=== PATIENT | female | born 1955 | race Two or more races ===

== ENCOUNTER 2023-12-28 18:28 | Emergency (ER) | payer BC, OTHER ==
[~2023-12-28] VITALS: Ht 157.5 cm; Wt 90.3 kg
[2023-12-28 19:06] LABS: Urine Bacteria None Seen /hpf (None Seen)
[2023-12-28 19:12] LABS: Urine Blood 3+ /uL (Negative); Urine Clarity Turbid (Clear); Urine Color Colorless (Yellow); Urine Protein, UAD 1+ (Negative); Urine Urobilinogen Normal (Negative); Urine WBC 269 /hpf (0 - 5); Urine WBC Clumps PRESENT /hpf (None Seen)
[2023-12-28 19:32] LABS: Basophils # (auto) 0.1 10 ^3/uL (0-0.2); Basophils % (auto) 0.7 % (0.0-2.0); Eosinophils # (auto) 0.1 10 ^3/uL (0-0.8); Eosinophils % (auto) 0.7 % (0.0-7.0); Hematocrit 43.7 % (36.0-46.0); Hemoglobin 14.2 g/dL (12.2-16.2); Lymphocytes # (auto) 0.7 10 ^3/uL (0.4-5.4); Lymphocytes % (auto) 7.8 % (10.0-50.0); Mean Corpuscular Hemoglobin 29.6 pg (28.0-32.0); Mean Corpuscular Hgb Conc. 32.6 g/dL (32.0-36.0); Monocytes # (auto) 0.7 10 ^3/uL (0-1.3); Monocytes % (auto) 6.9 % (0.0-12.0); Neutrophils % (auto) 83.9 % (37.0-80.0); Red Blood Cells 4.81 10^6/uL (4.0-5.20); Red Cell Distribution Width 13.9 % (11.8-14.3); White Blood Cell 9.6 10^3/uL (4.4-10.8)
[2023-12-28 19:48] LABS: Alanine Aminotransferase 24 U/L (7-40); Albumin 4.7 g/dL (3.2-4.8); Alkaline Phosphatase 91 U/L (46-116); Anion Gap 8 (5-15); Aspartate Aminotransferase 29 U/L (13-40); BUN/Creatinine Ratio 11.7 (10.0-20.0); Blood Urea Nitrogen 12 mg/dL (9-23); Calcium 9.8 mg/dL (8.5-10.1); Carbon Dioxide 24 mmol/L (20-30); Chloride 107 mmol/L (98-107); Glucose 100 mg/dL (74-106); Potassium 3.9 mmol/L (3.5-5.1); Sodium 139 mmol/L (136-145)
[2023-12-28 19:49] LABS: Bilirubin, Total 0.6 mg/dL (0.2-1.0); Total Protein 7.4 g/dL (5.7-8.2)
[2023-12-28] MEDS: cefTRIAXone 2GM/50ML D5W 50 ML IV ONE (21:15)
[2023-12-28] MEDS: SODIUM CHLORIDE 0.9% 1,000 ML IV ONE (21:38)
[2023-12-28] MEDS ORDERED: PHEN-922 PO (22:38)
[2023-12-28] MEDS ORDERED: CIP500T PO (22:38)
[2023-12-28] MEDS: ONDANSETRON HCL 4 MG/2 ML VIAL IV ONE (23:29)
[2023-12-28] MEDS: cefTRIAXone 1GM/50ML D5W 50 ML IV ONE (23:29)
[2023-12-28 23:45] VITALS: BP 132/76; PULSE 78; RESP 18; TEMP 98; O2SAT 96
[2023-12-29] MEDS: cefTRIAXone 1GM/50ML D5W 50 ML IV ONE (00:38)
== END 2023-12-29 01:27 | disposition home or self-care (01) ==
LOC: ER 18:28 → EDBD 18:28 → ER 12-29 01:27
DX: N39.0 Urinary tract infection, site not specified (principal); R31.9 Hematuria, unspecified; R94.31 Abnormal electrocardiogram [ECG] [EKG]; Z88.6 Allergy status to analgesic agent
CPT/HCPCS: 36415; 76775; 80053; 81001; 84484; 85025; 93005; 96361; 96365; 96366; 96375; 99285; J0696; J2405; J7030